=== PATIENT | female | born 1945 | race Caucasian/White ===

== ENCOUNTER 2018-09-02 17:32 | Observation (INO) | payer BC ==
[2018-09-02 17:34] VITALS: BMI 24.0
--- NOTE | 2018-09-02 19:00 | RAD ---
HISTORY: CP COMPARISON: Chest x-ray performed 07/07/13 TECHNIQUE: Chest, one view. FINDINGS: LUNGS: No focal consolidation. Please note that chest x-ray has limited sensitivity for the detection of pulmonary masses. PLEURA: No significant pleural effusion identified. No definite pneumothorax . CARDIOVASCULAR: Heart size appears within normal limits. Faint atherosclerotic calcification present. OSSEOUS STRUCTURES: Degenerative changes of the spine. VISUALIZED UPPER ABDOMEN: Unremarkable. OTHER FINDINGS: None. IMPRESSION: No focal consolidation.
[2018-09-02 19:02] LABS: BASO % 0.5 % (0.0-2.0); EOS % 0.2 % (0.0-4.0); HEMOGLOBIN 11.5 g/dL (11.0-16.0); LYMPH # 1.7 K/uL (1.0-4.3); LYMPH % 26.3 % (20.0-40.0); MEAN CELL VOLUME 87.7 fL (81.0-99.0); MEAN CORPUSCULAR HEMOGLOBIN 29.5 pg (27.0-31.0); MEAN CORPUSCULAR HGB CONC 33.6 g/dL (33.0-37.0); MEAN PLATELET VOLUME 7.4 fL (7.2-11.7); MONO # 0.5 K/uL (0.0-0.8); MONO % 7.2 % (0.0-10.0); NEUT # 4.3 K/uL (1.8-7.0); NEUT % 65.8 % (50.0-75.0); RBC 3.89 Mil/uL (3.80-5.20); RED CELL DISTRIBUTION WIDTH 13.6 % (11.5-14.5); WHITE BLOOD COUNT 6.6 K/uL (4.8-10.8)
--- NOTE | 2018-09-02 19:05 | C.PDOC ---
History Of Present Illness Patient is a 72 year old female, who presents to the ED c/o CP and SOB on exertion that has been present for the past couple of months. Patient reports that she these symptoms when walking up the stairs. Patient reports that she went to Dr. Love Wilkins who sent her to be seen by Dr. Machado. She denies any fever, abdominal pain, nausea, vomiting, diarrhea or sweats. Time Seen by Provider: 09/02/18 17:39 Chief Complaint (Nursing): Chest Pain History Per: Patient History/Exam Limitations: no limitations Onset/Duration Of Symptoms: Other (couple of months) Current Symptoms Are (Timing): Still Present Associated Symptoms: denies: Nausea, Diaphoresis Exacerbating Factors: Exertion Recent travel outside of the [place]: No Additional History Per: Patient Past Medical History Reviewed: Historical Data, Nursing Documentation, Vital Signs Vital Signs: Last Vital Signs Temp 98.1 F 09/02/18 17:48 Pulse 74 09/02/18 17:48 Resp 20 09/02/18 17:48 BP 123/55 L 09/02/18 17:48 Pulse Ox 98 09/02/18 17:48 - Medical History PMH: HTN, Hypercholesterolemia, Hypothyroidism Surgical History: Appendectomy Family History: States: No Known Family Hx - Social History Hx Tobacco Use: No Hx Alcohol Use: No Hx Substance Use: No - Immunization History Hx Tetanus Toxoid Vaccination: No Hx Influenza Vaccination: No Hx Pneumococcal Vaccination: No Review Of Systems Except As Marked, All Systems Reviewed And Found Negative. Constitutional: Negative for: Fever, Sweats Cardiovascular: Positive for: Chest Pain Respiratory: Positive for: SOB with Excertion Gastrointestinal: Negative for: Nausea, Vomiting, Abdominal Pain, Diarrhea Physical Exam - Physical Exam Appears: Non-toxic, No Acute Distress Skin: Normal Color, Warm, Dry Head: Atraumatic, Normacephalic Eye(s): bilateral: Normal Inspection Oral Mucosa: Moist Neck: Normal ROM, Supple Chest: Symmetrical, No Deformity Cardiovascular: Rhythm Regular, No Murmur Respiratory: Normal Breath Sounds, No Rales, No Rhonchi, No Wheezing Gastrointestinal/Abdominal: Soft, No Tenderness Extremity: No Pedal Edema Neurological/Psych: Oriented x3, Normal Speech, Normal Cognition ED Course And Treatment - Laboratory Results Result Diagrams: 09/02/18 18:58 ECG: Interpreted By Me, Viewed By Me ECG Rhythm: Sinus Rhythm Interpretation Of ECG: Nonspecific T wave abnormalities Rate From EC O2 Sat by Pulse Oximetry: 98 (on RA) Pulse Ox Interpretation: Normal - Other Rad CXR X-Ray: Viewed By Me, Read By Radiologist Interpretation: HISTORY: CP. COMPARISON: Chest x-ray performed 07/07/13. TECHNIQUE: Chest, one view. FINDINGS: LUNGS: No focal consolidation. Please note that chest x-ray has limited sensitivity for the detection of pulmonary masses. PLEURA: No significant pleural effusion identified. No definite pneumothorax . CARDIOVASCULAR: Heart size appears within normal limits. Faint atherosclerotic calcification present. OSSEOUS STRUCTURES: Degenerative changes of the spine. VISUALIZED UPPER ABDOMEN: Unremarkable. OTHER FINDINGS: None. IMPRESSION: No focal consolidation. Progress Note: Plan: EKG. Labs. CXR. Urinalysis. Spoke to who said patient had an abnormal EKG and feels that she has unstbale angina and wanted patient to be evaluated and put her to telemetry observation on hospitalist service. He is planning to do a cath tomorrow morning. NPO after midnight. Disposition - Disposition Disposition: HOSPITALIZED Disposition Time: 19:11 Condition: FAIR Forms: Smart[employer] (Turkish) - Clinical Impression Clinical Impression: Chest pain - PA / REGISTERED ROUTE ASSOCIATE / Resident Statement MD/DO has examined the patient and agrees with the treatment plan. - Scribe Statement The provider has reviewed the documentation as recorded by the Wanda Love All medical record entries made by the Scribe were at my direction and personally dictated by me. I have reviewed the chart and agree that the record accurately reflects my personal performance of the history, physical exam, medical decision making, and the department course for this patient. I have also personally directed, reviewed, and agree with the discharge instructions and disposition. Physician Patient Turnover Patient Signed Over To: Paul Pickett Handoff Comments: pending labs, dispo Decision To Admit - . Patient Diagnosis: Chest pain
[2018-09-02 19:11] LABS: INR 1.1; PROTHROMBIN TIME 12.4 SECONDS (9.7-12.2)
[2018-09-02] MEDS ORDERED: Enoxaparin 60 mg Syringe SC STA (19:12)
[2018-09-02] MEDS ORDERED: Aspirin 325 mg EC Tablets PO STA (19:12)
[2018-09-02 19:15] LABS: ALB/GLOB RATIO 1.3 (1.0-2.1); ALBUMIN 4.4 g/dL (3.5-5.0); ALT/SGPT 38 U/L (9-52); AST/SGOT 47 U/L (14-36); BLOOD UREA NITROGEN 17 mg/dL (7-17); CALCIUM 10.1 mg/dl (8.6-10.4); GFR NON-AFRICAN AMERICAN > 60
[2018-09-02] MEDS ORDERED: Enoxaparin 80 mg Syringe ONE (19:19)
[2018-09-02 19:26] LABS: CK-MB 0.41 ng/mL (0.0-3.38)
[2018-09-02 19:40] LABS: SQUAMOUS EPITHIAL 1 /hpf (0-5); URINE BACTERIA MOD (<OCC); URINE BILIRUBIN NEGATIVE (NEGATIVE); URINE BLOOD 1+ (NEGATIVE); URINE CLARITY Hazy (Clear); URINE COLOR Yellow (YELLOW); URINE GLUCOSE (UA) NORMAL (Normal); URINE LEUKOCYTE ESTERASE NEG Leu/uL (Negative); URINE PROTEIN NEGATIVE (NEGATIVE); URINE UROBILINOGEN NORMAL mg/dL (0.2-1.0)
--- NOTE | 2018-09-02 20:31 | CP.PCM.HP ---
<Rhina Tavarez P - Last Filed: 09/03/18 01:06> History of Present Illness - History of Present Illness History of Present Illness: Medicine H&P CC: Chest pain HPI: 72 year old female with PMHx of HTN, HLD, Hypothyroid and asthma was sent to the ED by her closing manager for evaluation of chest pain on ambulation for the past 6 months. Pain is located in the L chest and radiates to the L neck. Associated symptoms include shortness of breath, palpitations and diaphoresis. Patient states she has to stop and rest often when walking, which provides some relief. She states the aspirin she received in the ED helped as well. Patient also complains of L leg pain for the past month. Pain extends from the L thigh down to the heel. She noticed some L ankle swelling as well. Pain worsens with w alking. Patient denies fever, chills, nausea, vomiting, lightheadedness, dizziness, recent travel, abdominal pain, diarrhea, constipation, dysuria, hematuria. Patient notes urinary frequency for the past year. PMHx: HTN, HLD, Hypothyroid and asthma PSHx: Appendectomy, Meds: HCTZ 25mg PO daily, Synthroid 50mcg PO daily, Atorvastatin 10mg PO HS, Naproxen 1tab PO BID PRN leg pain, Benzonatate 200mg PO TID Allergies: NKDA FamHx: Denies SocHx: Denies tobacco, alcohol, illicit drugs, works at a warehouse. PMD: Dr. Wilkins, Cardio: Dr. Machado Review of Systems: -Gen: No fever, No chills, No headache, No lethargy, No weakness. -HEENT: No dizziness, No change in vision, No change in hearing, No sore throat, No dysphagia, No nasal congestion, No mucous. -Cardio: + chest pain, + palpitations, + lower extremity edema, No orthopnea. -Resp: + chronic cough, + dyspnea, No hemoptysis, No wheezing, No pain on inspiration. -GI: No abdominal pain, No nausea/vomiting, No diarrhea/constipation, No hematochezia, No hematemesis. -: No dysuria, + urinary freq for one year, No incontinence, No hematuria, No change in urinary stream. -MSK: + L leg pain, No back pain, No muscle weakness -Skin: No itching, No rash, No lesions. -Neuro: No confusion, No numbness, No tingling, No focal weakness, No radicular pain, No syncope. -Psych: No anxiety, No depression, No H/I, No S/I, No hallucinations. Present on Admission - Present on Admission Any Indicators Present on Admission: No Past Patient History - Past Social History Smoking Status: Never Smoked - CARDIAC Hx Hypercholesterolemia: Yes Hx Hypertension: Yes - NEUROLOGICAL Hx Vertigo: Yes - ENDOCRINE/METABOLIC Hx Hypothyroidism: Yes - INTEGUMENTARY Hx Dermatological Problems: No - MUSCULOSKELETAL/RHEUMATOLOGICAL Hx Musculoskeletal Disorders: No - PSYCHIATRIC Hx Substance Use: No - SURGICAL HISTORY Hx Appendectomy: Yes - ANESTHESIA Hx Anesthesia: Yes Hx Anesthesia Reactions: No Hx Malignant Hyperthermia: No Meds Allergies/Adverse Reactions: Allergies Allergy/AdvReac Type Severity Reaction Status Date / Time No Known Allergies Allergy Unverified 07/07/13 08:17 Physical Exam - Constitutional Appears: Non-toxic, No Acute Distress - Head Exam Head Exam: ATRAUMATIC, NORMOCEPHALIC - Eye Exam Eye Exam: EOMI, Normal appearance, PERRL - ENT Exam ENT Exam: Mucous Membranes Moist, Normal Exam - Neck Exam Neck exam: Positive for: Full Rom, Normal Inspection. Negative for: Lymphadenopathy Additional comments: Paracervical muscle tenderness on the L - Respiratory Exam Respiratory Exam: Clear to Auscultation Bilateral, NORMAL BREATHING PATTERN. absent: Chest Wall Tenderness, Rales, Rhonchi, Wheezes, Respiratory Distress - Cardiovascular Exam Cardiovascular Exam: REGULAR RHYTHM, +S1, +S2. absent: JVD, Systolic Murmur - GI/Abdominal Exam GI & Abdominal Exam: Normal Bowel Sounds, Soft. absent: Distended, Guarding, Rigid, Tenderness - Extremities Exam Extremities exam: Positive for: calf tenderness (On the Left, no edema, warmth or palpable cord), full ROM, normal capillary refill, normal inspection, pedal pulses present. Negative for: pedal edema - Neurological Exam Neurological exam: Alert, CN II-XII Intact, Oriented x3 - Psychiatric Exam Psychiatric exam: Normal Affect, Normal Mood - Skin Skin Exam: Dry, Intact, Normal Color, Warm Results - Vital Signs Recent Vital Signs: Last Vital Signs Temp 98 F 09/02/18 19:59 Pulse 76 09/02/18 19:59 Resp 14 09/02/18 19:59 BP 130/61 09/02/18 19:59 Pulse Ox 94 L 09/02/18 19:59 - Labs Result Diagrams: 09/02/18 18:58 09/02/18 18:58 Labs: Laboratory Results - last 24 hr 09/02/18 09/02/18 09/02/18 18:58 18:58 18:58 WBC 6.6 RBC 3.89 Hgb 11.5 Hct 34.1 MCV 87.7 MCH 29.5 MCHC 33.6 RDW 13.6 Plt Count 313 MPV 7.4 Neut % (Auto) 65.8 Lymph % (Auto) 26.3 Mccl[place] % (Auto) 7.2 Eos % (Auto) 0.2 Baso % (Auto) 0.5 Neut # (Auto) 4.3 Lymph # (Auto) 1.7 [place]clain # (Auto) 0.5 Eos # (Auto) 0.0 Baso # (Auto) 0.0 PT 12.4 H INR 1.1 APTT 33 Sodium 137 Potassium 3.8 Chloride 101 Carbon Dioxide 28 Anion Gap 12 BUN 17 Creatinine 0.4 L Est GFR ( Amer) > 60 Est GFR (Non-Af Amer) > 60 Random Glucose 98 Calcium 10.1 Total Bilirubin 0.4 AST 47 H ALT 38 Alkaline Phosphatase 106 Total Creatine Kinase 55 CK-MB (Mass) 0.41 Troponin I < 0.0120 Total Protein 7.8 Albumin 4.4 Globulin 3.4 Albumin/Globulin Ratio 1.3 Urine Color Urine Clarity Urine pH Ur Specific [place] Urine Protein Urine Glucose (UA) Urine Ketones Urine Blood Urine Nitrate Urine Bilirubin Urine Urobilinogen Ur Leukocyte Esterase Urine WBC (Auto) Urine RBC (Auto) Ur Squamous Epith Cells Urine Bacteria Hyaline Casts Urine Yeast (Budding) 09/02/18 19:26 WBC RBC Hgb Hct MCV MCH MCHC RDW Plt Count MPV Neut % (Auto) Lymph % (Auto) [place] % (Auto) Eos % (Auto) Baso % (Auto) Neut # (Auto) Lymph # (Auto) [place]cl[place] # (Auto) Eos # (Auto) Baso # (Auto) PT INR APTT Sodium Potassium Chloride Carbon Dioxide Anion Gap BUN Creatinine Est GFR ( Amer) Est GFR (Non-Af Amer) Random Glucose Calcium Total Bilirubin AST ALT Alkaline Phosphatase Total Creatine Kinase CK-MB (Mass) Troponin I Total Protein Albumin Globulin Albumin/Globulin Ratio Urine Color Yellow Urine Clarity Hazy Urine pH 5.0 Ur Specific [place] 1.017 Urine Protein Negative Urine Glucose (UA) Normal Urine Ketones Negative Urine Blood 1+ H Urine Nitrate Positive H Urine Bilirubin Negative Urine Urobilinogen Normal Ur Leukocyte Esterase Neg Urine WBC (Auto) 1 Urine RBC (Auto) 2 Ur Squamous Epith Cells 1 Urine Bacteria Mod H Hyaline Casts 3-5 H Urine Yeast (Budding) Few H Assessment & Plan - Assessment and Plan (Free Text) Plan: 72 year old female with PMHx of HTN, HLD, Hypothyroid and asthma admitted for unstable angina. Unstable angina EKG: NSR, possible LA enlargement, non-specific T wave abnormality CXR: No acute dz Troponin: negative x1 follow up serial NORAH and EKGs Given ASA 325 and Lovenox 65mg in ED Ddimer negative Dr. Machado, cardiology consulted. Plan for cardiac cath in AM f/u Hgb A1c F/u Lipid panel f/u TSH Aspirin 81mg PO daily Crestor 40mg PO daily Lovenox 65mg SC Q12H Possible UTI UA: +Nitrate, mod bacteria F/u repeat UA F/u urine cx Hx of HTN HCTZ 25mg PO daily Hx of HLD Crestor 40mg PO HS Hx of Hypothyroid F/u TSH Synthroid 50mcg PO daily Hx of Asthma Duonebs Q6H PRN PPx Lovenox 65mg SC Q12H Discussed with Dr. Agustin. Rhina Tavarez, PGY-1 <Keaton Agustin - Last Filed: 09/03/18 06:09> Results - Vital Signs Recent Vital Signs: Last Vital Signs Temp 97.7 F 09/03/18 00:00 Pulse 67 09/03/18 04:33 Resp 19 09/03/18 00:00 BP 143/65 09/03/18 00:00 Pulse Ox 97 09/03/18 00:00 - Labs Result Diagrams: 09/02/18 18:58 09/02/18 18:58 Labs: Laboratory Results - last 24 hr 09/02/18 09/02/18 09/02/18 18:58 18:58 18:58 WBC 6.6 RBC 3.89 Hgb 11.5 Hct 34.1 MCV 87.7 MCH 29.5 MCHC 33.6 RDW 13.6 Plt Count 313 MPV 7.4 Neut % (Auto) 65.8 Lymph % (Auto) 26.3 [place] % (Auto) 7.2 Eos % (Auto) 0.2 Baso % (Auto) 0.5 Neut # (Auto) 4.3 Lymph # (Auto) 1.7 [place] # (Auto) 0.5 Eos # (Auto) 0.0 Baso # (Auto) 0.0 PT 12.4 H INR 1.1 APTT 33 D-Dimer, Quantitative Sodium 137 Potassium 3.8 Chloride 101 Carbon Dioxide 28 Anion Gap 12 BUN 17 Creatinine 0.4 L Est GFR ( Amer) > 60 Est GFR (Non-Af Amer) > 60 Random Glucose 98 Calcium 10.1 Total Bilirubin 0.4 AST 47 H ALT 38 Alkaline Phosphatase 106 Total Creatine Kinase 55 CK-MB (Mass) 0.41 Troponin I < 0.0120 Total Protein 7.8 Albumin 4.4 Globulin 3.4 Albumin/Globulin Ratio 1.3 Urine Color Urine Clarity Urine pH Ur Specific [place] Urine Protein Urine Glucose (UA) Urine Ketones Urine Blood Urine Nitrate Urine Bilirubin Urine Urobilinogen Ur Leukocyte Esterase Urine WBC (Auto) Urine RBC (Auto) Ur Squamous Epith Cells Urine Bacteria Hyaline Casts Urine Yeast (Budding) 09/02/18 09/02/18 09/03/18 18:58 19:26 00:47 WBC RBC Hgb Hct MCV MCH MCHC RDW Plt Count MPV Neut % (Auto) Lymph % (Auto) [place] % (Auto) Eos % (Auto) Baso % (Auto) Neut # (Auto) Lymph # (Auto) [place] # (Auto) Eos # (Auto) Baso # (Auto) PT INR APTT D-Dimer, Quantitative < 200 Sodium Potassium Chloride Carbon Dioxide Anion Gap BUN Creatinine Est GFR ( Amer) Est GFR (Non-Af Amer) Random Glucose Calcium Total Bilirubin AST ALT Alkaline Phosphatase Total Creatine Kinase 44 CK-MB (Mass) 0.35 Troponin I < 0.0120 Total Protein Albumin Globulin Albumin/Globulin Ratio Urine Color Yellow Urine Clarity Hazy Urine pH 5.0 Ur Specific [place] 1.017 Urine Protein Negative Urine Glucose (UA) Normal Urine Ketones Negative Urine Blood 1+ H Urine Nitrate Positive H Urine Bilirubin Negative Urine Urobilinogen Normal Ur Leukocyte Esterase Neg Urine WBC (Auto) 1 Urine RBC (Auto) 2 Ur Squamous Epith Cells 1 Urine Bacteria Mod H Hyaline Casts 3-5 H Urine Yeast (Budding) Few H Assessment & Plan - Date & Time Date: 09/03/18 (I have seen and examined the patient. I agree with the findings and plan of care as documented by Dr. Tavarez. Patient with unstable angina. Consult to Dr Machado. For Cath in AM. History of Hypertension. Continue home meds. UTI. Repeat UA and urine culture. Monitor for acute changes.) Time: 06:08 Attending/Attestation - Attestation I have personally seen and examined this patient.: Yes I have fully participated in the care of the patient.: Yes I have reviewed all pertinent clinical information: Yes
[2018-09-02] MEDS ORDERED: Albuterol-Ipratrop 3 mg / 0.5 (3 ml) UD INH PRN (22:19)
[2018-09-03 01:22] LABS: CK-MB 0.35 ng/mL (0.0-3.38)
[2018-09-03] MEDS: Levothyroxine 50 MCG TAB PO SCH (05:41)
[2018-09-03] MEDS: Enoxaparin 80 mg Syringe SC SCH ×2 (06:03→06:26)
[2018-09-03 06:34] LABS: BASO % 0.4 % (0.0-2.0); EOS % 0.1 % (0.0-4.0); HEMOGLOBIN 11.3 g/dL (11.0-16.0); LYMPH # 1.6 K/uL (1.0-4.3); LYMPH % 32.8 % (20.0-40.0); MEAN CELL VOLUME 88.3 fL (81.0-99.0); MEAN CORPUSCULAR HEMOGLOBIN 29.3 pg (27.0-31.0); MEAN CORPUSCULAR HGB CONC 33.2 g/dL (33.0-37.0); MEAN PLATELET VOLUME 7.5 fL (7.2-11.7); MONO # 0.4 K/uL (0.0-0.8); MONO % 8.5 % (0.0-10.0); NEUT # 2.8 K/uL (1.8-7.0); NEUT % 58.2 % (50.0-75.0); RBC 3.87 Mil/uL (3.80-5.20); RED CELL DISTRIBUTION WIDTH 13.6 % (11.5-14.5); WHITE BLOOD COUNT 4.8 K/uL (4.8-10.8)
[2018-09-03 06:59] LABS: ALB/GLOB RATIO 1.5 (1.0-2.1); ALBUMIN 4.3 g/dL (3.5-5.0); ALT/SGPT 35 U/L (9-52); AST/SGOT 44 U/L (14-36); BLOOD UREA NITROGEN 19 mg/dL (7-17); CALCIUM 8.9 mg/dl (8.6-10.4); GFR NON-AFRICAN AMERICAN > 60; HDL CHOLESTEROL 38 mg/dL (30-70)
[2018-09-03] MEDS ORDERED: Enoxaparin 60 mg Syringe SC SCH ×2 (07:00)
[2018-09-03 07:10] LABS: CK-MB 0.33 ng/mL (0.0-3.38); LDL CHOLESTEROL 81 mg/dL (0-129)
[2018-09-03] MEDS ORDERED: Iohexol 350mg/ml 100 ML ONE (07:36)
[2018-09-03] MEDS ORDERED: Verapamil 2 ML ONE (07:36)
[2018-09-03] MEDS ORDERED: Lidocaine 2% MPF (5 ml) Inj ONE (07:37)
[2018-09-03] MEDS ORDERED: Midazolam 2 MG/2 ML VIAL ONE (07:39)
[2018-09-03] MEDS ORDERED: Nitroglycerin 50mg in D5W 50 MG/250 ML BOTTLE IV ONE (07:40)
--- NOTE | 2018-09-03 09:20 | CP.PCM.PN ---
Subjective - Date & Time of Evaluation Date of Evaluation: 09/03/18 Time of Evaluation: 09:19 - Subjective Subjective: Patient s/p Cath Non Obstructive Coronaries Normal EF Check ECHO prior prior to discharge Objective - Vital Signs/Intake and Output Vital Signs (last 24 hours): Temp Pulse Resp BP Pulse Ox 97.7 F 67 19 143/65 97 09/03/18 00:00 09/03/18 04:33 09/03/18 00:00 09/03/18 00:00 09/03/18 00:00 - Medications Medications: Current Medications Acetaminophen (Tylenol 325mg Tab) 650 mg PO Q6 PRN PRN Reason: Pain, moderate (4-7) Albuterol/Ipratropium (Duoneb 3 Mg/0.5 Mg (3 Ml) Ud) 3 ml INH RQ6 PRN PRN Reason: Shortness of Breath Aspirin (Aspirin Chewable) 81 mg PO DAILY [facility] Enoxaparin Sodium (Lovenox) 65 mg SC Q12H [facility] Last Admin: 09/03/18 06:26 Dose: Not Given Hydrochlorothiazide (Hydrodiuril) 25 mg PO DAILY [facility] Levothyroxine Sodium (Synthroid) 50 mcg PO DAILY@0630 [facility] Last Admin: 09/03/18 05:41 Dose: Not Given Rosuvastatin Calcium (Crestor) 40 mg PO HS [facility] Last Admin: 09/02/18 23:33 Dose: 40 mg - Labs Labs: 09/03/18 06:26 09/03/18 06:26 PT 12.4 SECONDS (9.7-12.2) H 09/02/18 18:58 INR 1.1 09/02/18 18:58 APTT 33 SECONDS (21-34) 09/02/18 18:58
--- NOTE | 2018-09-03 13:16 | CP.PCM.PN ---
<Sonia Madrigal - Last Filed: 09/03/18 13:06> Subjective - Date & Time of Evaluation Date of Evaluation: 09/03/18 Time of Evaluation: 13:06 - Subjective Subjective: Medicine Progress Note for Dr. Campbell's service S/E at bedside. Offers no acute complaints. S/P cardiac cath. Denies f/c, cp, sob, n/v, constipation or diarrhea, and dysuria. Objective - Vital Signs/Intake and Output Vital Signs (last 24 hours): Temp Pulse Resp BP Pulse Ox 97.7 F 72 19 143/65 97 09/03/18 00:00 09/03/18 11:59 09/03/18 00:00 09/03/18 00:00 09/03/18 00:00 - Medications Medications: Current Medications Acetaminophen (Tylenol 325mg Tab) 650 mg PO Q6 PRN PRN Reason: Pain, moderate (4-7) Albuterol/Ipratropium (Duoneb 3 Mg/0.5 Mg (3 Ml) Ud) 3 ml INH RQ6 PRN PRN Reason: Shortness of Breath Aspirin (Aspirin Chewable) 81 mg PO DAILY [facility] Last Admin: 09/03/18 12:07 Dose: 81 mg Enoxaparin Sodium (Lovenox) 65 mg SC Q12H [facility] Last Admin: 09/03/18 06:26 Dose: Not Given Hydrochlorothiazide (Hydrodiuril) 25 mg PO DAILY [facility] Last Admin: 09/03/18 12:07 Dose: 25 mg Levothyroxine Sodium (Synthroid) 50 mcg PO DAILY@0630 [facility] Last Admin: 09/03/18 05:41 Dose: Not Given Rosuvastatin Calcium (Crestor) 40 mg PO [facility] Last Admin: 09/02/18 23:33 Dose: 40 mg - Labs Labs: 09/03/18 06:26 09/03/18 06:26 PT 12.4 SECONDS (9.7-12.2) H 09/02/18 18:58 INR 1.1 09/02/18 18:58 APTT 33 SECONDS (21-34) 09/02/18 18:58 - Constitutional Appears: Non-toxic, No Acute Distress - Head Exam Head Exam: NORMAL INSPECTION - Eye Exam Eye Exam: EOMI - ENT Exam ENT Exam: Mucous Membranes Moist - Respiratory Exam Respiratory Exam: Clear to Ausculation Bilateral, NORMAL BREATHING PATTERN. abs ent: Rales, Rhonchi, Wheezes - Cardiovascular Exam Cardiovascular Exam: REGULAR RHYTHM, +S1, +S2 - GI/Abdominal Exam GI & Abdominal Exam: Soft, Normal Bowel Sounds. absent: Guarding, Rigid, Tenderness - Extremities Exam Extremities Exam: Normal Inspection. absent: Calf Tenderness, Pedal Edema - Neurological Exam Neurological Exam: Alert, Awake, Oriented x3 - Psychiatric Exam Psychiatric exam: Normal Affect, Normal Mood - Skin Skin Exam: Dry, Intact, Normal Color Assessment and Plan - Assessment and Plan (Free Text) Assessment: 72 year old female with PMHx of HTN, HLD, Hypothyroid and asthma admitted for unstable angina. Unstable angina EKG: NSR, possible LA enlargement, non-specific T wave abnormality CXR: No acute dz Troponin: negative x1 follow up serial NORAH and EKGs Given ASA 325 and Lovenox 65mg in ED Ddimer negative Dr. Machado, cardiology consulted- cardiac cath on 09-03-18; nonobstructive arteries; recommends echo prior to discharge Aspirin 81mg PO daily Crestor 40mg PO daily Abrnomal Urinalysis UA: +Nitrate, mod bacteria urine cx positive for gram negative darío asymptomatic; will start IV abx if patient becomes symptomatic Hx of HTN HCTZ 25mg PO daily Hx of HLD Crestor 40mg PO HS Hx of Hypothyroid TSH normal Synthroid 50mcg PO daily Hx of Asthma Duonebs Q6H PRN PPx Lovenox 40mg daily GI ppx not indicated at this time Discussed with Dr.Pham Sonia Madrigal, PGY-1 <Josr Campbell H - Last Filed: 09/03/18 13:36> Objective - Vital Signs/Intake and Output Vital Signs (last 24 hours): Temp Pulse Resp BP Pulse Ox 97.7 F 72 19 143/65 97 09/03/18 00:00 09/03/18 11:59 09/03/18 00:00 09/03/18 00:00 09/03/18 00:00 - Medications Medications: Current Medications Acetaminophen (Tylenol 325mg Tab) 650 mg PO Q6 PRN PRN Reason: Pain, moderate (4-7) Albuterol/Ipratropium (Duoneb 3 Mg/0.5 Mg (3 Ml) Ud) 3 ml INH RQ6 PRN PRN Reason: Shortness of Breath Aspirin (Aspirin Chewable) 81 mg PO DAILY [facility] Last Admin: 09/03/18 12:07 Dose: 81 mg Enoxaparin Sodium (Lovenox) 40 mg SC DAILY [facility] Hydrochlorothiazide (Hydrodiuril) 25 mg PO DAILY [facility] Last Admin: 09/03/18 12:07 Dose: 25 mg Levothyroxine Sodium (Synthroid) 50 mcg PO DAILY@0630 [facility] Last Admin: 09/03/18 05:41 Dose: Not Given Rosuvastatin Calcium (Crestor) 40 mg PO HS [facility] Last Admin: 09/02/18 23:33 Dose: 40 mg - Labs Labs: 09/03/18 06:26 09/03/18 06:26 PT 12.4 SECONDS (9.7-12.2) H 09/02/18 18:58 INR 1.1 09/02/18 18:58 APTT 33 SECONDS (21-34) 09/02/18 18:58 Attending/Attestation - Attestation I have personally seen and examined this patient.: Yes I have fully participated in the care of the patient.: Yes I have reviewed all pertinent clinical information, including history, physical exam and plan: Yes Notes (Text): Medical attending: Patient was seen and examined by me. Agree with the above note by the resident Patient is S/P cardiac catherization this morning. She reports feeling well, denied chest pain, denied shortness of breath. The site of the cardiac catherization entry was the right wrist - it looks clean, dry, no bleeding. She says she has minimal pain there. Moving all fingers Possible patient could be discharged tommorow, pending echo at this moment thank you Josr Campbell
[2018-09-04] MEDS: Levothyroxine 50 MCG TAB PO SCH (05:35)
[2018-09-04 08:08] VITALS: BP 113/63; PULSE 72; RESP 20; TEMP 97.9; O2SAT 93
[2018-09-04 08:49] LABS: BASO % 0.2 % (0.0-2.0); EOS % 0.1 % (0.0-4.0); HEMOGLOBIN 11.9 g/dL (11.0-16.0); LYMPH # 1.6 K/uL (1.0-4.3); LYMPH % 24.6 % (20.0-40.0); MEAN CORPUSCULAR HEMOGLOBIN 30.4 pg (27.0-31.0); MEAN CORPUSCULAR HGB CONC 34.5 g/dL (33.0-37.0); MEAN PLATELET VOLUME 7.9 fL (7.2-11.7); MONO # 0.5 K/uL (0.0-0.8); MONO % 7.1 % (0.0-10.0); NEUT # 4.3 K/uL (1.8-7.0); RBC 3.93 Mil/uL (3.80-5.20); RED CELL DISTRIBUTION WIDTH 13.6 % (11.5-14.5); WHITE BLOOD COUNT 6.4 K/uL (4.8-10.8)
[2018-09-04 09:03] LABS: ALB/GLOB RATIO 1.4 (1.0-2.1); ALBUMIN 4.4 g/dL (3.5-5.0); ALT/SGPT 34 U/L (9-52); AST/SGOT 43 U/L (14-36); BLOOD UREA NITROGEN 21 mg/dL (7-17); CALCIUM 9.7 mg/dl (8.6-10.4); GFR NON-AFRICAN AMERICAN > 60
[2018-09-04] MEDS ORDERED: Enoxaparin 40 mg Syringe SC SCH (10:00)
--- NOTE | 2018-09-04 14:16 | CARD ---
APPROVED REPORT Date of service: 09/04/2018 EXAM: Two-dimensional and M-mode echocardiogram with Doppler and color Doppler. Other Information Quality : AverageRhythm : INDICATION Chest Pain 2D DIMENSIONS IVSd0.9 (0.7-1.1cm)Aortic Root (2D)2.5 (2.0-3.7cm) LVDd4.6 (3.9-5.9cm)PWd1.1 (0.7-1.1cm) LVDs3.5 (2.5-4.0cm)FS (%) 24.5 % LVEF (%)48.8 (>50%) M-Mode DIMENSIONS Left Atrium (MM)3.25 (2.5-4.0cm)Aortic Root2.84 (2.2-3.7cm) Aortic Cusp Exc.1.40 (1.5-2.0cm) Aortic Valve AoV Peak Mdlaimfh519.2cm/Radha Peak GR.6mmHg Mitral Valve MV E Bzdaihqf00.9cm/sMV A Bbhdhcsk30.5cm/s TDI Lateral E' Peak V8.80cm/sMedial E' Peak V5.19cm/s Tricuspid Valve TR Peak Nhtcabap096en/sTR Peak Gr.[id number] <Conclusion> Suboptimal study Left ventricle: thickness: normal; size: normal; overall ejection fraction: 65%: diastolic filling pressures: normal Mitral valve: annulus: normal: leaflets: normal: excursion: normal; no significant trans-mitral gradient: No significant incompetence: left atrium: normal Aortic valve: leaflets: normal: excursion: normal; no significant trans-aortic gradient: No significant incompetence: aortic root: normal Right sided Structures: Pulmonary valve: normal; no significant incompetence; Tricuspid valve: normal; no significant incompetence: Intra-cardiac hemodynamics: pulmonary systolic pressures: normal; central venous pressures: normal No pericardial effusion
--- NOTE | 2018-09-04 15:26 | CP.PCM.DIS ---
<Sonia Madrigal - Last Filed: 09/04/18 15:22> Provider - Provider Date of Admission: 09/02/18 19:57 Attending physician: Keaton Agustin MD Consults: 09/02/18 22:32 Cardiology Consult Routine Comment: Consulting Provider: Savage Machado Consulting Physician: Savage Machado Reason for Consult: unstable angina Time Spent in preparation of Discharge (in minutes): 31 Diagnosis - Discharge Diagnosis (1) Chest pain Status: Resolved Hospital Course - Lab Results Lab Results: Micro Results 09/02/18 22:19 Urine,Clean Catch Urine Culture - Final Escherichia Coli Most Recent Lab Values WBC 6.4 K/uL (4.8-10.8) 09/04/18 08:37 RBC 3.93 Mil/uL (3.80-5.20) 09/04/18 08:37 Hgb 11.9 g/dL (11.0-16.0) 09/04/18 08:37 Hct 34.6 % (34.0-47.0) 09/04/18 08:37 MCV 88.0 fL (81.0-99.0) 09/04/18 08:37 MCH 30.4 pg (27.0-31.0) 09/04/18 08:37 MCHC 34.5 g/dL (33.0-37.0) 09/04/18 08:37 RDW 13.6 % (11.5-14.5) 09/04/18 08:37 Plt Count 312 K/uL (130-400) 09/04/18 08:37 MPV 7.9 fL (7.2-11.7) 09/04/18 08:37 Neut % (Auto) 68.0 % (50.0-75.0) 09/04/18 08:37 Lymph % (Auto) 24.6 % (20.0-40.0) 09/04/18 08:37 [place] % (Auto) 7.1 % (0.0-10.0) 09/04/18 08:37 Eos % (Auto) 0.1 % (0.0-4.0) 09/04/18 08:37 Baso % (Auto) 0.2 % (0.0-2.0) 09/04/18 08:37 Neut # (Auto) 4.3 K/uL (1.8-7.0) 09/04/18 08:37 Lymph # (Auto) 1.6 K/uL (1.0-4.3) 09/04/18 08:37 [place] # (Auto) 0.5 K/uL (0.0-0.8) 09/04/18 08:37 Eos # (Auto) 0.0 K/uL (0.0-0.7) 09/04/18 08:37 Baso # (Auto) 0.0 K/uL (0.0-0.2) 09/04/18 08:37 PT 12.4 SECONDS (9.7-12.2) H 09/02/18 18:58 INR 1.1 09/02/18 18:58 APTT 33 SECONDS (21-34) 09/02/18 18:58 D-Dimer, Quantitative < 200 ng/mlDDU (0-243) 09/02/18 18:58 Sodium 137 mmol/L (132-148) 09/04/18 08:37 Potassium 3.7 mmol/L (3.6-5.2) 09/04/18 08:37 Chloride 100 mmol/L (98-107) 09/04/18 08:37 Carbon Dioxide 28 mmol/L (22-30) 09/04/18 08:37 Anion Gap 12 (10-20) 09/04/18 08:37 BUN 21 mg/dL (7-17) H 09/04/18 08:37 Creatinine 0.5 mg/dL (0.7-1.2) L 09/04/18 08:37 Est GFR ( Amer) > 60 09/04/18 08:37 Est GFR (Non-Af Amer) > 60 09/04/18 08:37 Random Glucose 110 mg/dL (65-105) H 09/04/18 08:37 Hemoglobin A1c 6.4 % (4.2-6.5) 09/03/18 06:26 Calcium 9.7 mg/dl (8.6-10.4) 09/04/18 08:37 Phosphorus 5.2 mg/dL (2.5-4.5) H 09/03/18 06:26 Magnesium 2.0 mg/dL (1.6-2.3) 09/03/18 06:26 Total Bilirubin 0.4 mg/dL (0.2-1.3) 09/04/18 08:37 AST 43 U/L (14-36) H 09/04/18 08:37 ALT 34 U/L (9-52) 09/04/18 08:37 Alkaline Phosphatase 107 U/L (38-126) 09/04/18 08:37 Total Creatine Kinase 46 U/L (30-135) 09/03/18 06:26 CK-MB (Mass) 0.33 ng/mL (0.0-3.38) 09/03/18 06:26 Troponin I < 0.0120 ng/mL (0.00-0.120) 09/03/18 06:26 Total Protein 7.5 g/dL (6.3-8.3) 09/04/18 08:37 Albumin 4.4 g/dL (3.5-5.0) 09/04/18 08:37 Globulin 3.1 gm/dL (2.2-3.9) 09/04/18 08:37 Albumin/Globulin Ratio 1.4 (1.0-2.1) 09/04/18 08:37 Triglycerides 170 mg/dL (0-149) H 09/03/18 06:26 Cholesterol 143 mg/dL (0-199) 09/03/18 06:26 LDL Cholesterol Direct 81 mg/dL (0-129) 09/03/18 06:26 HDL Cholesterol 38 mg/dL (30-70) 09/03/18 06:26 TSH 3rd Generation 3.52 mIU/L (0.46-4.68) 09/03/18 06:26 Urine Color Yellow (YELLOW) 09/02/18 19:26 Urine Clarity Hazy (Clear) 09/02/18 19:26 Urine pH 5.0 (5.0-8.0) 09/02/18 19:26 Ur Specific [place] 1.017 (1.003-1.030) 09/02/18 19:26 Urine Protein Negative mg/dL (NEGATIVE) 09/02/18 19:26 Urine Glucose (UA) Normal mg/dL (Normal) 09/02/18 19:26 Urine Ketones Negative mg/dL (NEGATIVE) 09/02/18 19:26 Urine Blood 1+ (NEGATIVE) H 09/02/18 19:26 Urine Nitrate Positive (NEGATIVE) H 09/02/18 19:26 Urine Bilirubin Negative (NEGATIVE) 09/02/18 19:26 Urine Urobilinogen Normal mg/dL (0.2-1.0) 09/02/18 19:26 Ur Leukocyte Esterase Neg [place]/uL (Negative) 09/02/18 19:26 Urine WBC (Auto) 1 /hpf (0-5) 09/02/18 19:26 Urine RBC (Auto) 2 /hpf (0-3) 09/02/18 19:26 Ur Squamous Epith Cells 1 /hpf (0-5) 09/02/18 19:26 Urine Bacteria Mod (<OCC) H 09/02/18 19:26 Hyaline Casts 3-5 /lpf (0-2) H 09/02/18 19:26 Urine Yeast (Budding) Few /hpf (NEGATIVE) H 09/02/18 19:26 - Hospital Course Hospital Course: Upon Admission 72 year old female with PMHx of HTN, HLD, Hypothyroid and asthma was 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 Pain is located in the L chest and radiates to the L neck. Associated symptoms include shortness of breath, palpitations and diaphoresis. Patient states she has to stop and rest often when walking, which provides some relief. She states the aspirin she received in the ED helped as well. Patient also complains of L leg pain for the past month. Pain extends from the L thigh down to the heel. She noticed some L ankle swelling as well. Pain worsens with walking. Patient denies fever, chills, nausea, vomiting, lightheadedness, dizziness, recent travel, abdominal pain, diarrhea, constipation, dysuria, hematuria. Patient notes urinary frequency for the past year. Hospital Course 72 yo female admitted for evaluation of ongoing chest pain for past [address] Machado performed a cardiac cath which showed non-obstructing arteries. Chest pain resolved during admission. EKG showed NSR. Trops x3 negative. Dr. Machado recommended an echo prior to discharge. Echo was completed and read by Dr. Krishnamurthy. Echo showed EF 65. No other abnormalities were mentioned. Patient discharged with followup instructions and to start taking aspirin 81mg daily. Discharge Plan 1. Patient is stable for discharge to home as per Dr. Campbell. 2. Patient will need to followup with pmd within 1 week of discharge from hospital. Patient will need to followup with Dr. Machado within 1 month of discharge from hospital. 3. Patient will resume all of her home medications as no adjustments were made during this admission. Patient will also now take daily aspirin 81mg. 4. Patient should return to hospital if symptoms worsen or recur. 5. Patient understands the plan as above and agrees. Discharge Exam - Head Exam Head Exam: NORMAL INSPECTION - Eye Exam Eye Exam: EOMI, Normal appearance - ENT Exam ENT Exam: Mucous Membranes Moist - Respiratory Exam Respiratory Exam: NORMAL BREATHING PATTERN. absent: Respiratory Distress - Cardiovascular Exam Cardiovascular Exam: REGULAR RHYTHM, +S1, +S2 - GI/Abdominal Exam GI & Abdominal Exam: Normal Bowel Sounds, Soft - Extremities Exam Extremities exam: normal inspection - Neurological Exam Neurological exam: Alert, Oriented x3 - Psychiatric Exam Psychiatric exam: Normal Affect, Normal Mood - Skin Skin Exam: Dry, Intact, Normal Color Discharge Plan - Follow Up Plan Condition: FAIR Disposition: HOME/ ROUTINE Instructions: Chest Pain (DC) Additional Instructions: 1. Patient is stable for discharge to home as per Dr. Campbell. 2. Patient will need to followup with pmd within 1 week of discharge from hospital. Patient will need to followup with Dr. Machado within 1 month of discharge from hospital. 3. Patient will resume all of her home medications as no adjustments were made during this admission. Patient will also now take daily aspirin 81mg. 4. Patient should return to hospital if symptoms worsen or recur. 5. Patient understands the plan as above and agrees. Referrals: Savage Machado MD [Staff Provider] - <Josr Campbell - Last Filed: 09/04/18 16:54> Provider - Provider Date of Admission: 09/02/18 19:57 Attending physician: Keaton Agustin MD Consults: 09/02/18 22:32 Cardiology Consult Routine Comment: Consulting Provider: Savage Machado Consulting Physician: Savage Machado Reason for Consult: unstable angina Hospital Course - Lab Results Lab Results: Micro Results 09/02/18 22:19 Urine,Clean Catch Urine Culture - Final Escherichia Coli Most Recent Lab Values WBC 6.4 K/uL (4.8-10.8) 09/04/18 08:37 RBC 3.93 Mil/uL (3.80-5.20) 09/04/18 08:37 Hgb 11.9 g/dL (11.0-16.0) 09/04/18 08:37 Hct 34.6 % (34.0-47.0) 09/04/18 08:37 MCV 88.0 fL (81.0-99.0) 09/04/18 08:37 MCH 30.4 pg (27.0-31.0) 09/04/18 08:37 MCHC 34.5 g/dL (33.0-37.0) 09/04/18 08:37 RDW 13.6 % (11.5-14.5) 09/04/18 08:37 Plt Count 312 K/uL (130-400) 09/04/18 08:37 MPV 7.9 fL (7.2-11.7) 09/04/18 08:37 Neut % (Auto) 68.0 % (50.0-75.0) 09/04/18 08:37 Lymph % (Auto) 24.6 % (20.0-40.0) 09/04/18 08:37 [place] % (Auto) 7.1 % (0.0-10.0) 09/04/18 08:37 Eos % (Auto) 0.1 % (0.0-4.0) 09/04/18 08:37 Baso % (Auto) 0.2 % (0.0-2.0) 09/04/18 08:37 Neut # (Auto) 4.3 K/uL (1.8-7.0) 09/04/18 08:37 Lymph # (Auto) 1.6 K/uL (1.0-4.3) 09/04/18 08:37 [place] # (Auto) 0.5 K/uL (0.0-0.8) 09/04/18 08:37 Eos # (Auto) 0.0 K/uL (0.0-0.7) 09/04/18 08:37 Baso # (Auto) 0.0 K/uL (0.0-0.2) 09/04/18 08:37 PT 12.4 SECONDS (9.7-12.2) H 09/02/18 18:58 INR 1.1 09/02/18 18:58 APTT 33 SECONDS (21-34) 09/02/18 18:58 D-Dimer, Quantitative < 200 ng/mlDDU (0-243) 09/02/18 18:58 Sodium 137 mmol/L (132-148) 09/04/18 08:37 Potassium 3.7 mmol/L (3.6-5.2) 09/04/18 08:37 Chloride 100 mmol/L (98-107) 09/04/18 08:37 Carbon Dioxide 28 mmol/L (22-30) 09/04/18 08:37 Anion Gap 12 (10-20) 09/04/18 08:37 BUN 21 mg/dL (7-17) H 09/04/18 08:37 Creatinine 0.5 mg/dL (0.7-1.2) L 09/04/18 08:37 Est GFR ( Amer) > 60 09/04/18 08:37 Est GFR (Non-Af Amer) > 60 09/04/18 08:37 Random Glucose 110 mg/dL (65-105) H 09/04/18 08:37 Hemoglobin A1c 6.4 % (4.2-6.5) 09/03/18 06:26 Calcium 9.7 mg/dl (8.6-10.4) 09/04/18 08:37 Phosphorus 5.2 mg/dL (2.5-4.5) H 09/03/18 06:26 Magnesium 2.0 mg/dL (1.6-2.3) 09/03/18 06:26 Total Bilirubin 0.4 mg/dL (0.2-1.3) 09/04/18 08:37 AST 43 U/L (14-36) H 09/04/18 08:37 ALT 34 U/L (9-52) 09/04/18 08:37 Alkaline Phosphatase 107 U/L (38-126) 09/04/18 08:37 Total Creatine Kinase 46 U/L (30-135) 09/03/18 06:26 CK-MB (Mass) 0.33 ng/mL (0.0-3.38) 09/03/18 06:26 Troponin I < 0.0120 ng/mL (0.00-0.120) 09/03/18 06:26 Total Protein 7.5 g/dL (6.3-8.3) 09/04/18 08:37 Albumin 4.4 g/dL (3.5-5.0) 09/04/18 08:37 Globulin 3.1 gm/dL (2.2-3.9) 09/04/18 08:37 Albumin/Globulin Ratio 1.4 (1.0-2.1) 09/04/18 08:37 Triglycerides 170 mg/dL (0-149) H 09/03/18 06:26 Cholesterol 143 mg/dL (0-199) 09/03/18 06:26 LDL Cholesterol Direct 81 mg/dL (0-129) 09/03/18 06:26 HDL Cholesterol 38 mg/dL (30-70) 09/03/18 06:26 TSH 3rd Generation 3.52 mIU/L (0.46-4.68) 09/03/18 06:26 Urine Color Yellow (YELLOW) 09/02/18 19:26 Urine Clarity Hazy (Clear) 09/02/18 19:26 Urine pH 5.0 (5.0-8.0) 09/02/18 19:26 Ur Specific [place] 1.017 (1.003-1.030) 09/02/18 19:26 Urine Protein Negative mg/dL (NEGATIVE) 09/02/18 19:26 Urine Glucose (UA) Normal mg/dL (Normal) 09/02/18 19:26 Urine Ketones Negative mg/dL (NEGATIVE) 09/02/18 19:26 Urine Blood 1+ (NEGATIVE) H 09/02/18 19:26 Urine Nitrate Positive (NEGATIVE) H 09/02/18 19:26 Urine Bilirubin Negative (NEGATIVE) 09/02/18 19:26 Urine Urobilinogen Normal mg/dL (0.2-1.0) 09/02/18 19:26 Ur Leukocyte Esterase Neg [place]/uL (Negative) 09/02/18 19:26 Urine WBC (Auto) 1 /hpf (0-5) 09/02/18 19:26 Urine RBC (Auto) 2 /hpf (0-3) 09/02/18 19:26 Ur Squamous Epith Cells 1 /hpf (0-5) 09/02/18 19:26 Urine Bacteria Mod (<OCC) H 09/02/18 19:26 Hyaline Casts 3-5 /lpf (0-2) H 09/02/18 19:26 Urine Yeast (Budding) Few /hpf (NEGATIVE) H 09/02/18 19:26 Attending/Attestation - Attestation I have personally seen and examined this patient.: Yes I have fully participated in the care of the patient.: Yes I have reviewed all pertinent clinical information, including history, physical exam and plan: Yes Notes (Text): 09/04/18 16:53 Medical attending: Patient was seen and examined by me. Agree with the above note by the resident The patient was not in any acute distress when we saw her On exam we also walked her around in the 5T hallway and she did well. She was not short of breath and did not have chest pain or palpitations when walking. Also she was NSR in the 90s when walking with us She will need to follow up with cardiology and her primary physician thank you Josr Campbell
--- NOTE | 2018-09-05 19:09 | CARDCATH ---
PROCEDURE DATE: 09/03/2018 PROCEDURES: 1. Left heart catheterization. 2. Coronary angiogram. REFERRING PHYSICIAN: Tara Wilkins MD. PERFORMING PHYSICIAN: Savage Machado MD. CLINICAL INDICATIONS: 1. Unstable angina. 2. Hypertension. 3. Hyperlipidemia. PROCEDURE FINDINGS: After informed consent, the patient was prepped and draped in the usual sterile fashion. A 2% lidocaine was given in the right wrist for local anesthesia. Using micropuncture technique, 6-[place] sheath was introduced into right radial artery. A JR4 6-[place] diagnostic catheter inserted into left ventricle. LVEDP measured. Contrast injected and LV angiogram was done. Then, the catheter was pulled back across the aortic valve. Gradient across the aortic valve was measured. Then the same catheter engaged into right coronary artery. Contrast injected and right coronary angiogram was done. Then, the catheter was exchanged to 6-[place] catheter. The catheter engaged into left main coronary artery. Contrast injected and left coronary angiogram was done. The patient tolerated the procedure well. Postprocedure, Terumo radial band applied to right wrist with excellent hemostasis. Radiological supervision and radiological interpretation of the coronary imaging was done. FINDINGS: 1. Left main coronary artery is patent. 2. LAD and diagonal branches are patent. 3. Left circumflex and obtuse marginal branches are patent. 4. Right coronary artery is dominant and patent. 5. LV ejection fraction is 70%. No wall motion abnormality is noted. EDP is 18. No gradient across the aortic valve. IMPRESSION: 1. Normal coronaries. 2. Normal left ventricular systolic function. 3. Recommend medical management. Savage Machado MD
--- NOTE | 2018-09-05 19:34 | CARD ---
APPROVED REPORT Date of service: 09/02/2018 EKG Measurement Heart [id number] <Conclusion> Normal sinus rhythm Possible Left atrial enlargement Nonspecific T wave abnormality Abnormal ECG
--- NOTE | 2018-09-06 15:09 | CARD ---
APPROVED REPORT Date of service: 09/03/2018 EKG Measurement Heart [id number] <Conclusion> Normal sinus rhythm T wave abnormality, consider anterolateral ischemia Abnormal ECG
--- NOTE | 2018-09-06 15:09 | CARD ---
APPROVED REPORT Date of service: 09/03/2018 EKG Measurement Heart [id number] <Conclusion> Normal sinus rhythm T wave abnormality, consider lateral ischemia Abnormal ECG
== END 2018-09-04 16:00 | disposition home or self-care (01) ==
LOC: C.ER 17:32 → C.9E 19:57 → C.5S 23:14
PROVIDERS: ADMIT Family Medicine; ATTEND Family Medicine
DX: I20.0 Unstable angina (principal); J45.909 Unspecified asthma, uncomplicated; Z79.82 Long term (current) use of aspirin; Z90.49 Acquired absence of other specified parts of digestive tract; E03.9 Hypothyroidism, unspecified; E78.00 Pure hypercholesterolemia, unspecified; I10 Essential (primary) hypertension; E78.5 Hyperlipidemia, unspecified
CPT/HCPCS: 36415; 71045; 80053; 80061; 81001; 82550; 82553; 83036; 83735; 84100; 84443; 84484; 85025; 85378; 85610; 85730; 87086; 87181; 93005; 93306; 93458; 96372; 99152; 99153; 99285; C1769; C1887; G0378; J1644; J1650; J2001; J2250; J3010; Q9967